=== PATIENT | female | born 1935 | race Caucasian/White ===

== ENCOUNTER 2017-03-14 16:47 | Emergency (ER) | payer MEDICARE, OTHER ==
[~2017-03-14] VITALS: Ht 175.3 cm; Wt 79.1 kg
[2017-03-14 16:54] VITALS: Ht 175.3 cm; Wt 79.1 kg
[2017-03-14] MEDS ORDERED: LIDOCAINE 2%/EPI MPF (SDV) 20 ML VIAL INJ STA (17:05)
--- NOTE | 2017-03-14 17:13 | ERD ---
ER Documentation Chief Complaint Chief Complaint GROUND LEVEL MECHANICAL FALL, HIT LT SIDE OF HEAD/FACE, LACERATION, NO KO HPI 81 year old female on ASA presenting after mechanical fall in the parking lot today. No LOC. She tripped over a "bump" in the parking lot. She has a mild headache but no vision disturbance, focal weakness, numbness, nausea or vomiting. NO other injuries other than abrasion to left palm. ROS All systems reviewed and are negative except as per history of present illness. PMhx/Soc History of Surgery: Yes (APPY, HYSTERECTOMY, CHOLESYSTECTOMY) Anesthesia Reaction: No Hx Neurological Disorder: No Hx Respiratory Disorders: No Hx Cardiac Disorders: No Hx Psychiatric Problems: No Hx Miscellaneous Medical Probl: Yes (OVARIAN CANCER, HYPOTHYROID) Hx Alcohol Use: No Hx Substance Use: No Hx Tobacco Use: No Smoking Status: Never smoker FmHx Family History: No diabetes Physical Exam Vitals Vital Signs Date Time Temp Pulse Resp B/P Pulse Ox O2 Delivery O2 Flow Rate FiO2 03/14/17 19:19 98.2 77 18 140/75 99 Room Air 03/14/17 16:54 98.8 83 16 167/89 98 Physical Exam Const: well appearing, no distress Head: Left temporal 2 cm vertical laceration Eyes: Normal Conjunctiva, PERRLA, EOMI, no subconjunctival hemorrhage ENT: Normal External Ears, Nose and Mouth. no hemotympanum Neck: Full range of motion..~ No meningismus. No C spine tenderness Resp: Clear to auscultation bilaterally Cardio: Regular rate and rhythm, no murmurs Abd: Soft, non tender, non distended. Normal bowel sounds Skin: No petechiae or rashes Back: No midline or flank tenderness Ext: No cyanosis, or edema Neur: Awake and alert Psych: Normal Mood and Affect Results 24 hrs Current Medications Medications (Trade) Dose Ordered Sig/Bertin Route PRN Reason Start Time Stop Time Status Last Admin Dose Admin Diphtheria/ Tetanus/Acell Pertussis (Adacel) 0.5 ml ONCE ONCE IM* 03/14/17 17:30 03/14/17 17:31 DC 03/14/17 17:26 Lidocaine/ Epinephrine (Xylocaine 2%/ Epi Mpf(Sdv)) 20 ml ONCE STAT INJ 03/14/17 17:05 03/14/17 17:08 DC Procedures/MDM Laceration Repair by me: Anesthesia: 1% lidocaine locally Location: left temporal area Tendon/Joint/Nerves: No injury Foreign body: None detected after copious irrigation and exploration Technique: Simple Interrupted Sutures x 3 Complexity: No subcutaneous sutures/mucosal repair. +edge excision Post Closure Length: 2 cm Patient's bleeding was easily controlled in the department and there is no indication of anemia. No evidence of compartment syndrome, neurologic injury, vascular injury, open joint, tendon laceration, or foreign body. Patient is appropriate for outpatient follow up. 48 hour wound check. Scar minimization instructions given. Patient is presenting after a ground-level fall that was reportedly mechanical. Her vitals are stable. Her neurologic exam is normal. Given she is on aspirin, head CT was done and did not show any acute abnormalities. CT of her face did not show any acute fractures. Her laceration was repaired. Her tetanus shot was updated. She was advised to return for any worsening symptoms. Suture removal advised in 5-7 days. patient discharged in stable condition. Departure Diagnosis: Primary Impression: Facial laceration Encounter type: initial encounter Qualified Code: S01.81XA - Facial laceration, initial encounter Additional Impression: Fall with no significant injury Encounter type: initial encounter Qualified Code: W19.XXXA - Fall with no significant injury, initial encounter Condition: Stable EKHARJIT MARTIN MD Mar 14, 2017 17:13
[2017-03-14] MEDS ORDERED: DIPHTH/TET/ACEL PERTUSS (ADULT) 0.5 ML VIAL IM* ONE (17:30)
--- NOTE | 2017-03-14 17:40 | RADRPT ---
PROCEDURE: CT Brain without contrast. CLINICAL INDICATION: Headaches. Neurologic deficit TECHNIQUE: A CT of the brain was performed on multidetector high-resolution CT scanner utilizing a xial sections from the skull base through the vertex without contrast. One or more of the following dose reduction techniques were used: Automated exposure control, Adjustment of the mA and/or kV acc ording to patient size, and/or use of iterative reconstruction technique. DICOM images are available . DOSE: CTDI = 47 mGy and the DLP = 763 mGy-cm. COMPARISON: None available FINDINGS: No acute intracranial hemorrhage, significant mass effect or midline shift. The schulz-white different iation is grossly preserved. The ventricles are normal in size for age. Vascular calcifications. No significant opacification of the visualized paranasal sinuses or mastoids. IMPRESSION: No acute intracranial findings. RPTAT: AA .Jonathan Schofield MD, MD Date Time Electronically viewed and signed by .Jonathan Schofield MD, on 03/14/2017 17:40 .T/
--- NOTE | 2017-03-14 17:55 | RADRPT ---
PROCEDURE: CT SCAN OF FACE AND SINUSES CLINICAL INDICATION: Facial trauma TECHNIQUE: Transaxial slices through the sinus was obtained with bone and soft tissue windows. Add itional sagittal and coronal reconstruction images were acquired. One of more of the following dose reduction techniques were utilized: -automatic exposure control.-adjustment of the mA and/or kV acco rding to patient size. -Use of iterative reconstruction technique.DICOM images available Radiation Dose: CTDI vol 29.46 mGy, DLP 514.55 mGy-cm. One of more of the following dose reduction techniques were utilized: -automatic exposure control -adjustment of the mA and/or kV according to patient size -Use of iterative reconstruction technique CONTRAST: None COMPARISON: CT head FINDINGS: Atlantoaxial, atlanto-occipital joints, temporomandibular joints appear intact. Hard palate, mandibl e appears intact. Sphenoid sinuses clear. Moderate mucoperiosteal thickening noted in the maxillary sinuses bilaterally. Ostiomeatal unit is patent with left-sided Babatunde cells seen. Nasal septum is d eviated to the right in its midportion at the level of the middle nasal turbinate. No blowout fractu res seen. Calcification intracranial ICA noted at the level of cavernous sinus. IMPRESSION: No fractures seen. Maxillary sinus disease. RPTAT: [facility] Physician [place] Date Time Electronically viewed and signed by Physician [place] on 03/14/2017 17:55 MB/
[2017-03-14 19:19] VITALS: BP 140/75; PULSE 77; RESP 18; TEMP 98.2
== END 2017-03-14 19:20 | disposition home or self-care (01) ==
LOC: E/R 16:47
DX: S01.81XA Laceration without foreign body of other part of head, initial encounter (principal); E03.9 Hypothyroidism, unspecified; W01.0XXA Fall on same level from slipping, tripping and stumbling without subsequent striking against object, initial encounter; Y92.9 Unspecified place or not applicable; Z23 Encounter for immunization; Z85.43 Personal history of malignant neoplasm of ovary
CPT/HCPCS: 70450; 70486; 90471; 90715

== ENCOUNTER 2017-03-21 12:04 | Emergency (ER) | payer MEDICARE, OTHER ==
[~2017-03-21] VITALS: Ht 177.8 cm; Wt 70.0 kg
[2017-03-21 12:09] VITALS: Ht 177.8 cm; Wt 70.0 kg
--- NOTE | 2017-03-21 13:29 | ERD ---
ER Documentation Chief Complaint Chief Complaint SUTURE REMOVAL TO LEFT EYEBROW. HPI Patient is an 81-year-old female with no medical problems who presents with a trip and fall. She is here for suture removal. One week ago she had a trip and fall and had 3 sutures placed the left side of her face. She has bruising the left side of the face but no fevers and no pus from the wound. She just came in for a suture removal. Her primary doctor is Dr. Kaiser. ROS All systems reviewed and are negative except as per history of present illness. Allergies Allergies: Coded Allergies: No Known Allergy (Unverified , 03/15/17) PMhx/Soc History of Surgery: Yes (APPY, HYSTERECTOMY, CHOLESYSTECTOMY) Anesthesia Reaction: No Hx Neurological Disorder: No Hx Respiratory Disorders: No Hx Cardiac Disorders: No Hx Psychiatric Problems: No Hx Miscellaneous Medical Probl: Yes (OVARIAN CANCER, HYPOTHYROID) Hx Alcohol Use: No Hx Substance Use: No Hx Tobacco Use: No FmHx Family History: No diabetes Physical Exam Vitals Vital Signs Date Time Temp Pulse Resp B/P Pulse Ox O2 Delivery O2 Flow Rate FiO2 03/21/17 12:09 98.9 91 18 129/78 97 Physical Exam Const: No acute distress Head: Atraumatic Skin: Edema of the face, incision is clean, dry, and intact Neur: Awake and alert Psych: Normal Mood and Affect Procedures/MDM Suture Removal by me: Sutures removed with tweezers and scissors without incident. Wound shows no evidence of infection, foreign body, neurologic injury, vascular injury, open joint or tendon laceration. Patient to follow up PRN. Departure Diagnosis: Primary Impression: Visit for suture removal Condition: Fair Patient Instructions: Suture Removal, No Complication Additional Instructions: Call your primary care doctor TOMORROW for an appointment during the next 1 WEEK.Tell the director [facility] that you were referred from this facility.See the doctor sooner or return here if your condition worsens before your appointment time. ALLYN ADAME MD Mar 21, 2017 13:29
== END 2017-03-21 13:13 | disposition home or self-care (01) ==
LOC: E/R 12:04
DX: Z48.02 Encounter for removal of sutures (principal); E03.9 Hypothyroidism, unspecified; Z85.43 Personal history of malignant neoplasm of ovary
CPT/HCPCS: 99281

== ENCOUNTER → 2017-09-20 | Outpatient (CLI) | END | disposition home or self-care (01) ==